=== PATIENT | male | born 1945 | race Caucasian/White ===

== ENCOUNTER 2019-07-31 15:42 | Inpatient (IN) | payer MEDICARE, MEDICAID ==
[~2019-07-31] VITALS: Ht 185.4 cm; Wt 78.9 kg
[~2019-07-31 15:42] MED LIST: ALBU18HF2 IH; AMIT100T2 PO; DOCU-141 PO; GABA-534 PO; IPRA3AMP22 IH; IPRA4AER IH; LEVA15HF5 IH; NITR0.4T48 SL; TAMS0.4C34 PO
--- NOTE | 2019-07-31 15:42 | NUR ---
Patient is AOx4, cooperative@this time, respiration:easy. Patient prefers to keep his inhalers near him.
[2019-07-31 16:05] LABS: BASOPHILS # (AUTO) 0.1 K/uL (0.0-8.0); BASOPHILS % (AUTO) 0.7 % (0.0-2.0); EOSINOPHILS % (AUTO) 0.2 % (0.0-7.0); HEMATOCRIT 44.1 % (36.7-47.1); HEMOGLOBIN 14.3 g/dL (12.5-16.3); LYMPHOCYTES # (AUTO) 1.3 K/uL (20.0-40.0); MEAN CORPUSCULAR HEMOGLOBIN 31.3 uug (23.8-33.4); MEAN CORPUSCULAR HGB CONC 33 g/dL (32.5-36.3); MEAN CORPUSCULAR VOLUME 96.2 fL (73.0-96.2); MONOCYTES # (AUTO) 0.7 K/uL (2.0-10.0); MONOCYTES % (AUTO) 6.3 % (0.0-11.0); NEUTROPHILS # (AUTO) 8.8 K/uL (1.8-8.9); NEUTROPHILS % (AUTO) 80.8 % (38.5-71.5); PLATELET COUNT (AUTO) 210 K/uL (152-348); RED BLOOD CELL COUNT(AUTO) 4.58 MIL/uL (4.06-5.63); WHITE BLOOD COUNT (AUTO) 10.9 K/uL (3.6-10.2)
[2019-07-31 16:13] LABS: CARBON DIOXIDE 30 mmol/L (21-32); CHLORIDE 102 mmol/L (98-107); CREATININE 1.2 mg/dL (0.6-1.3); GLUCOSE 85 mg/dL (74-106); POTASSIUM 4.7 mmol/L (3.5-5.1); UREA NITROGEN, BLOOD 13 mg/dL (7-18)
[2019-07-31] MEDS ORDERED: BISA10SU95 RC (16:14)
[2019-07-31] MEDS ORDERED: MORP20SO PO (16:14)
[2019-07-31] MEDS ORDERED: ACET650S13 RC (16:14)
[2019-07-31] MEDS ORDERED: DIPH50CA37 PO (16:14)
[2019-07-31] MEDS ORDERED: ATRO2DRO4 OP (16:14)
[2019-07-31] MEDS ORDERED: MAG30ORA PO (16:14)
[2019-07-31] MEDS ORDERED: QUET25TA PO (16:14)
[2019-07-31] MEDS ORDERED: LORA2ORA5 PO (16:14)
[2019-07-31] MEDS ORDERED: POTA-88 PO (16:14)
[2019-07-31] MEDS ORDERED: ALBU2.5V38 IH (16:14)
[2019-07-31] MEDS ORDERED: TRAM50TA2 PO (16:14)
[2019-07-31] MEDS ORDERED: TIOT4MIS3 IH (16:14)
[2019-07-31] MEDS ORDERED: AMIT75TA2 PO (16:14)
[2019-07-31] MEDS ORDERED: ONDA4TAB11 PO (16:14)
[2019-07-31 16:19] LABS: ACETAMINOPHEN < 2.0 ug/mL (10-30); ALANINE AMINOTRANSFERASE 31 U/L (16-63); ALKALINE PHOSPHATASE 98 U/L (50-136); ASPARTATE AMINOTRANSFERASE 47 U/L (15-37); BILIRUBIN,DIRECT 0.2 mg/dL (0.0-0.2); BILIRUBIN,TOTAL 0.7 mg/dL (0.2-1.0); TOTAL PROTEIN, SERUM 7.9 g/dL (6.4-8.2)
--- NOTE | 2019-07-31 16:35 | NUR ---
Patient is medically cleared by Dr Degroot for mental health admission, still for urine specimen, endorsed to MHU nurse Yohan accordingly.
[2019-07-31 16:36] LABS: ETHANOL < 3 MG/DL (0-0)
[2019-07-31] MEDS ORDERED: BLOOD SUGAR DIAGNOSTIC 1 EACH STRIP VI ONE (17:15)
[2019-07-31] MEDS ORDERED: TEMAZEPAM 7.5 MG CAPSULE PO PRN (17:15)
[2019-07-31] MEDS ORDERED: MAG HYDROX/AL HYDROX/SIMETH 30 ML LIQUID UDC PO PRN (17:15)
[2019-07-31 17:50] VITALS: BP 138/88
--- NOTE | 2019-07-31 18:25 | NUR ---
Admitted patient from ER with 5150 for DTO due to pt was screaming and threatening to kill everyone form halfway .during interview Patient is A/Ox2, loud and angry affect, overly disruptive by shouting and screaming to staff, demanding to have his medications by his bed side,believes that the police are lying about him.refused to sign any paper work. noted patient had skin tear on his left FA, and abrasion on his left knee,picture taken and treatment done.
[2019-07-31] MEDS ORDERED: ONDANSETRON ODT 4 MG TAB.RAPDIS SL PRN (19:30)
[2019-07-31] MEDS: ALBUTEROL SULFATE 2.5 MG/3 ML NEBU IH SCH (19:30)
[2019-07-31 20:00] VITALS: BP 106/63
[2019-07-31] MEDS: ACETAMINOPHEN 325 MG TABLET PO PRN (21:12)
[2019-07-31] MEDS: TEMAZEPAM 15 MG CAPSULE PO PRN (21:12)
[2019-08-01] MEDS: ALBUTEROL SULFATE 2.5 MG/3 ML NEBU IH SCH ×3 (00:34→19:05)
--- NOTE | 2019-08-01 00:34 | NUR ---
RT: PT refuse tx. pt does not want to be waken for tx. nurse aware
--- NOTE | 2019-08-01 06:28 | NUR ---
Patient slept a total of 8.45 hours. Attended all needs. Ensured safety and comfort. Aerosol inhaler offered as needed for shortness of breath. No other untoward events noted. Will endorse accordingly.
[2019-08-01 07:45] VITALS: BP 146/79
[2019-08-01] MEDS: DOCUSATE SODIUM 100 MG CAPSULE PO SCH ×2 (08:03→17:34)
[2019-08-01] MEDS: diphenhydrAMINE 50 MG CAPSULE PO SCH (08:09)
--- NOTE | 2019-08-01 10:04 | NUR ---
Social Work Note/Family Contact: workers compensation consultant contacted patients shayy De La Torre, ([phone]) and left a voicemail to discuss patients treatment plan and discharge plan.
--- NOTE | 2019-08-01 10:06 | NUR ---
Social Work Note/Facility Contact: nozzle worker contacted patients facility where he resided at [facility] [place] at [id number] [place] [id number]; ([phone]). Patient contacted the admin coordinator Harpreet, ([phone]) and expressed that patient is not welcomed back.
[2019-08-01 10:28] LABS: BILIRUBIN,TOTAL 0.8 mg/dL (0.2-1.0); POTASSIUM 3.9 mmol/L (3.5-5.1); TOTAL PROTEIN, SERUM 7.5 g/dL (6.4-8.2)
--- NOTE | 2019-08-01 10:55 | NUR ---
Social Work Note/Initial Discharge Plan: Patient currently resides at [address] [place] [id number]; ([phone]). Per patient, he does not want to go back. THOMAS will work with the pt and the MD regarding appropriate discharge planning. SW will form a safe and proper discharge.
--- NOTE | 2019-08-01 11:05 | NUR ---
Social Work Note/Facility Contact: Camille admin coordinator from [facility], ([phone]) stated that she will facility patients discharge when patient is ready to a [facility] as patient has been in there facility before.
--- NOTE | 2019-08-01 12:46 | NUR ---
WOUND CARE CONSULT: PT PRESENTS WITH LEFT KNEE ABRASION AND LEFT ARM SKIN TEAR, PRESENT ON ADMISSION. RECOMMENDATIONS MADE FOR WOUND CARE. DISCUSSED WITH NURSING STAFF. WILL SEE PRN. PT IS AMBULATORY AND CONTINENT. Addendum: 08/01/19 at 1247 by ROVERTO COKER RN Amended: Links added.
[2019-08-01] MEDS: GABAPENTIN 100 MG CAPSULE PO SCH ×2 (12:50→17:34)
[2019-08-01] MEDS: ACETAMINOPHEN 325 MG TABLET PO PRN (14:03)
--- NOTE | 2019-08-01 15:45 | NUR ---
received MRSA positive result from LAB, made aware ,placed pt on contact isolation .
[2019-08-01 16:00] VITALS: BP 106/65
--- NOTE | 2019-08-01 16:17 | NUR ---
Paving And Surfacing Labourer Note/Family Contact: antichecking iron worker contacted patients ex- Allie, ([phone]) and left a voicemail in regards to patients treatment plan and discharge.
[2019-08-01] MEDS: SERTRALINE HCL 50 MG TABLET PO SCH (17:34)
[2019-08-01] MEDS: MUPIROCIN 2% OINT 22 GM TUBE NS SCH (20:34)
[2019-08-01 20:57] VITALS: BP 111/64
[2019-08-01] MEDS: TRAMADOL HCL 50 MG TABLET PO PRN (21:04)
[2019-08-01] MEDS: TEMAZEPAM 15 MG CAPSULE PO PRN (21:31)
[2019-08-02] MEDS: ALBUTEROL SULFATE 2.5 MG/3 ML NEBU IH SCH ×4 (00:52→19:15)
[2019-08-02 07:30] VITALS: BP 112/74
--- NOTE | 2019-08-02 07:30 | NUR ---
Patient calm and comfortable with no signs of distress; patient will continue be monitored through out shift.
[2019-08-02] MEDS: MUPIROCIN 2% OINT 22 GM TUBE NS SCH ×2 (08:37→20:19)
[2019-08-02] MEDS: DOCUSATE SODIUM 100 MG CAPSULE PO SCH ×2 (08:37→17:04)
[2019-08-02] MEDS: diphenhydrAMINE 50 MG CAPSULE PO SCH (08:38)
[2019-08-02] MEDS: GABAPENTIN 100 MG CAPSULE PO SCH ×3 (08:38→17:04)
[2019-08-02] MEDS: TRAMADOL HCL 50 MG TABLET PO PRN ×2 (10:15→21:40)
[2019-08-02] MEDS: CLONAZEPAM 0.5 MG TABLET PO PRN (11:17)
[2019-08-02 16:00] VITALS: BP 106/55
[2019-08-02] MEDS: SERTRALINE HCL 50 MG TABLET PO SCH (17:04)
--- NOTE | 2019-08-02 18:18 | NUR ---
Patient calm and comfortable through out most of shift; patient medication compliant; patient expressing pain on big right toe; image taken of toe; x-ray taken of right foot with an impression of no acute fracture or dislocation or plain imaging evidence of osteomyelitis along with mild right haux deformity. Patient used prn inhaler through shift on as a needed basis.Patient with stable vital signs; Report given to oncoming nurse.
[2019-08-02] MEDS: TEMAZEPAM 15 MG CAPSULE PO PRN (20:18)
[2019-08-02] MEDS: ACETAMINOPHEN 325 MG TABLET PO PRN (20:19)
[2019-08-02 21:03] VITALS: BP 108/71
--- NOTE | 2019-08-02 22:00 | NUR ---
Lt forearm dressing is soiled, patient reports pain and burning sensation at the skin tear site. Dressing was changed per WC recommendations. Moderate erythema and swelling around the skin tear, sanguineous discharge. Right hallux is also reddened and painful. Will endorse to the day shift for new/change in Tx per hospitalist orders.
[2019-08-03] MEDS: ALBUTEROL SULFATE 2.5 MG/3 ML NEBU IH SCH ×5 (00:47→20:26)
[2019-08-03 07:30] VITALS: BP 93/51
[2019-08-03] MEDS: GABAPENTIN 100 MG CAPSULE PO SCH ×3 (08:31→18:00)
[2019-08-03] MEDS: DOCUSATE SODIUM 100 MG CAPSULE PO SCH ×2 (08:31→18:00)
[2019-08-03] MEDS: diphenhydrAMINE 50 MG CAPSULE PO SCH (08:31)
[2019-08-03] MEDS: MUPIROCIN 2% OINT 22 GM TUBE NS SCH ×2 (08:32→20:10)
[2019-08-03 16:45] VITALS: BP 105/56
[2019-08-03] MEDS: SERTRALINE HCL 50 MG TABLET PO SCH (18:00)
[2019-08-03 20:19] VITALS: BP 125/71
[2019-08-03] MEDS: TRAMADOL HCL 50 MG TABLET PO PRN (20:21)
[2019-08-03] MEDS: TEMAZEPAM 15 MG CAPSULE PO PRN (21:05)
[2019-08-03] MEDS: CLONAZEPAM 0.5 MG TABLET PO PRN (22:52)
[2019-08-03] MEDS: ACETAMINOPHEN 325 MG TABLET PO PRN (22:53)
[2019-08-04] MEDS: ALBUTEROL SULFATE 2.5 MG/3 ML NEBU IH SCH ×5 (01:30→20:30)
--- NOTE | 2019-08-04 06:14 | NUR ---
Patient slept 5 hrs and 30 mins.
[2019-08-04 07:15] LABS: *BILIRUBIN,URIN NEGATIVE (NEGATIVE); *BLOOD, URINE NEGATIVE (NEGATIVE); *CLARITY,URINE CLEAR (CLEAR); *COLOR,URINE YELLOW (YELLOW); *KETONES,URINE NEGATIVE (NEGATIVE); *UROBILINOGEN,URINE 0.2 E.U./dl (NORMAL); LEUKOCYTE ESTERASE ,URINE NEGATIVE (NEGATIVE); NITRITE, URINE NEGATIVE (NEGATIVE); UGLUCOSE NEGATIVE (NEGATIVE)
[2019-08-04 07:58] LABS: EOSINOPHILS # (AUTO) 0.2 K/uL (0.0-0.7); EOSINOPHILS % (AUTO) 4.4 % (0.0-7.0); HEMATOCRIT 40.2 % (36.7-47.1); LYMPHOCYTES # (AUTO) 1.5 K/uL (20.0-40.0); LYMPHOCYTES % (AUTO) 31.8 % (20.5-51.5); MEAN CORPUSCULAR HEMOGLOBIN 30.4 uug (23.8-33.4); MEAN CORPUSCULAR HGB CONC 32 g/dL (32.5-36.3); MEAN CORPUSCULAR VOLUME 93.7 fL (73.0-96.2); MONOCYTES # (AUTO) 0.5 K/uL (2.0-10.0); MONOCYTES % (AUTO) 10.9 % (0.0-11.0); NEUTROPHILS # (AUTO) 2.5 K/uL (1.8-8.9); NEUTROPHILS % (AUTO) 51.9 % (38.5-71.5); PLATELET COUNT (AUTO) 141 K/uL (152-348); RED BLOOD CELL COUNT(AUTO) 4.29 MIL/uL (4.06-5.63); WHITE BLOOD COUNT (AUTO) 4.8 K/uL (3.6-10.2)
[2019-08-04 08:13] LABS: CARBON DIOXIDE 34 mmol/L (21-32); CHLORIDE 103 mmol/L (98-107); CREATININE 0.7 mg/dL (0.6-1.3); GLUCOSE 94 mg/dL (74-106); MAGNESIUM 2.2 mg/dL (1.8-2.4); PHOSPHOROUS 4.1 mg/dL (2.5-4.9); POTASSIUM 4.2 mmol/L (3.5-5.1); UREA NITROGEN, BLOOD 14 mg/dL (7-18)
[2019-08-04] MEDS: GABAPENTIN 100 MG CAPSULE PO SCH ×3 (08:54→16:21)
[2019-08-04] MEDS: MUPIROCIN 2% OINT 22 GM TUBE NS SCH ×2 (08:54→20:25)
[2019-08-04] MEDS: DOCUSATE SODIUM 100 MG CAPSULE PO SCH ×2 (08:54→16:21)
[2019-08-04] MEDS: VITAMINS A AND D OINT TP SCH (08:54)
[2019-08-04] MEDS: diphenhydrAMINE 50 MG CAPSULE PO SCH (08:55)
[2019-08-04] MEDS: MAGNESIUM HYDROXIDE 30 ML LIQUID UDC PO PRN ×2 (09:12→18:15)
[2019-08-04] MEDS: TRAMADOL HCL 50 MG TABLET PO PRN (12:19)
[2019-08-04 14:42] VITALS: BP 120/73
--- NOTE | 2019-08-04 15:41 | NUR ---
GPS : received patient AOx3, calm and cooperative patient compliant with medication, patient visited by his Ex- patient asked for his valuables and he signed for the repossession, patient gave his valuable including credit card and ID to his ex , will continue monitor
[2019-08-04] MEDS: SERTRALINE HCL 50 MG TABLET PO SCH (16:21)
[2019-08-04 16:32] VITALS: BP 99/64
--- NOTE | 2019-08-04 17:19 | NUR ---
PATIENT RECEIVED PRN MEDICATION FOR SOB, PATIENT IN NO DISTRESS, WOUND TREATMENT WAS DONE, SEEN BY THE VASCULAR SPECIALIST TODAY, WILL CONTINUE MONITOR
[2019-08-04] MEDS: CLONAZEPAM 0.5 MG TABLET PO PRN (18:15)
--- NOTE | 2019-08-04 18:23 | NUR ---
PATIENT WENT TO NURSING STATION, ASK FOR MILK OF MAGNESIA AND ASK FOR ANXIETY MEDICATION, PATIENT WENT TO HIS ROOM QUIETLY, MEDS GIVEN ORDERED WILL CONTINUE MONITOR
[2019-08-04] MEDS: TEMAZEPAM 15 MG CAPSULE PO PRN (21:18)
[2019-08-04] MEDS: ACETAMINOPHEN 325 MG TABLET PO PRN (21:25)
[2019-08-05] MEDS: ALBUTEROL SULFATE 2.5 MG/3 ML NEBU IH SCH ×4 (01:30→19:15)
[2019-08-05 08:28] VITALS: BP 115/58
[2019-08-05] MEDS: DOCUSATE SODIUM 100 MG CAPSULE PO SCH ×2 (08:29→16:44)
[2019-08-05] MEDS: GABAPENTIN 100 MG CAPSULE PO SCH ×3 (08:30→16:44)
[2019-08-05] MEDS: MUPIROCIN 2% OINT 22 GM TUBE NS SCH ×2 (08:47→20:39)
[2019-08-05] MEDS: diphenhydrAMINE 50 MG CAPSULE PO SCH (08:49)
[2019-08-05] MEDS: VITAMINS A AND D OINT TP SCH (08:50)
[2019-08-05 16:36] VITALS: BP 130/60
[2019-08-05] MEDS: SERTRALINE HCL 50 MG TABLET PO SCH (16:44)
--- NOTE | 2019-08-05 17:02 | NUR ---
PT NOTED TO HAVE APPARENTLY HIDDEN HIS BREAKFAST THIS MORNING BECAUSE HYDROMETEOROLOGICAL TECHNICIAN NOTICED PT WAS GIVING HIS BREAKFAST AT THIS TIME TO ANOTHER PT IN ANOTHER ROOM. REMINDED PT THAT HE HAS MRSA, AND HE CANNOT GIVE HIS FOOD TO OTHER PT'S DUE TO INFECTION CONTROL POLICY, WELL OTHER PT'S HAVE DIFFERENTIATING DIETS. PT BECAME QUITE ANGRY, HOSTILE, AND DEFENSIVE. STATED "ISABEL DONE THAT BEFORE AND NOBODY SAID ANYTHING. NOW YOU'RE TREATING ME LIKE A DAMN JACKASS." WILL CONTINUE TO REMIND PT TO NOT GIVE HIS FOOD TO OTHER PTS.
[2019-08-05 20:00] VITALS: BP 107/69
[2019-08-05] MEDS: TRAMADOL HCL 50 MG TABLET PO PRN (20:51)
[2019-08-05] MEDS: ACETAMINOPHEN 325 MG TABLET PO PRN (21:11)
[2019-08-05] MEDS: TEMAZEPAM 15 MG CAPSULE PO PRN (21:38)
[2019-08-06] MEDS: ALBUTEROL SULFATE 2.5 MG/3 ML NEBU IH SCH ×4 (00:31→20:42)
[2019-08-06 08:07] VITALS: BP 134/74
[2019-08-06] MEDS: GABAPENTIN 100 MG CAPSULE PO SCH ×3 (08:41→16:01)
[2019-08-06] MEDS: DOCUSATE SODIUM 100 MG CAPSULE PO SCH ×2 (08:41→16:01)
[2019-08-06] MEDS: MUPIROCIN 2% OINT 22 GM TUBE NS SCH ×2 (08:41→20:41)
[2019-08-06] MEDS: VITAMINS A AND D OINT TP SCH (08:42)
[2019-08-06] MEDS: diphenhydrAMINE 50 MG CAPSULE PO SCH (08:43)
[2019-08-06] MEDS: NEOMY/BACITRAC/POLYMI OINT 28.35 GM TUBE TOP SCH (09:15)
--- NOTE | 2019-08-06 09:51 | NUR ---
Social Work Note/Discharge Plan Update: Camille admin coordinator from [facility], ([phone]) stated that she will accept patient upon discharge. lime kiln worker helper faxed patients clinicals ([phone]).
--- NOTE | 2019-08-06 09:58 | NUR ---
Social Work Note/Family Contact: civil service worker contacted patients daughter Britt, ([phone]) and left a voicemail. civil service worker also contacted patients ex- Allie, ([phone]) and left a voicemail to call back. civil service worker will follow-up.
[2019-08-06] MEDS: TRAMADOL HCL 50 MG TABLET PO PRN (12:50)
--- NOTE | 2019-08-06 13:20 | NUR ---
Social Work Note/Family Contact: motion picture set worker spoke to patients daughter Britt, ([phone]) and expressed patients treatment and discharge plan. Patients daughter expressed that her mother who is patients ex- Allie, ([phone]) is involved in his care because she lives in [place].
--- NOTE | 2019-08-06 13:53 | NUR ---
WOUND CARE FOLLOW UP: PT SEEN ON REQUEST OF NURSING STAFF FOR LEFT ARM WOUND. NO ODOR NOTED BUT SLIGHT INCREASE IN DRAINAGE. LEFT KNEE WOUND NEARLY HEALED. CONCUR WITH CURRENT TREATMENT PLAN. WILL SEE PRN. PT IS AMBULATORY AND CONTINENT. Addendum: 08/06/19 at 1400 by ROVERTO COKER RN Amended: Links added.
[2019-08-06] MEDS: SERTRALINE HCL 50 MG TABLET PO SCH (16:01)
[2019-08-06 16:32] VITALS: BP 103/57
--- NOTE | 2019-08-06 17:13 | NUR ---
GPS: PATIENT AOX3, CALM AND COOPERATIVE, COMPLIANT WITH MEDICATION, ON CONTACT ISOLATION FOR MRSA OF THE NARES , PATIENT COMPLIANT WITH THE ISOLATION, WOUND CARE WAS DONE, WILL CONTINUE MONITOR PATIENT
[2019-08-06] MEDS: MAGNESIUM HYDROXIDE 30 ML LIQUID UDC PO PRN (18:07)
[2019-08-06 20:00] VITALS: BP 125/65
[2019-08-06] MEDS: TEMAZEPAM 15 MG CAPSULE PO PRN (21:34)
[2019-08-06] MEDS: ACETAMINOPHEN 325 MG TABLET PO PRN (21:34)
[2019-08-07] MEDS: ALBUTEROL SULFATE 2.5 MG/3 ML NEBU IH SCH ×5 (01:30→20:50)
--- NOTE | 2019-08-07 06:54 | NUR ---
Patient first observed awake watching television in the dining room with labile mood. Observed at nursing station several times through shift claiming he had shortness of breath, saturation recorded at 95%. Patient compliant with HS medication. Nebulizer treatment administered as ordered by respiratory therapist times two at patients requests. Prn for insomnia administered as ordered with effective outcome, no distress noted a total of five hours and fifteen minutes. Continue to monitor for safety.
[2019-08-07 07:30] VITALS: BP 107/68
--- NOTE | 2019-08-07 07:56 | NUR ---
GPS: RECEIVED PATIENT ASLEEP ON BED, SPOKE WITH DR. MOSS WITH ORDER FOR DISCONTINUE OF ISOLATION , ORDERS MADE AND CARRIED OUT
[2019-08-07] MEDS: GABAPENTIN 100 MG CAPSULE PO SCH ×3 (08:14→16:06)
[2019-08-07] MEDS: DOCUSATE SODIUM 100 MG CAPSULE PO SCH ×2 (08:14→16:06)
[2019-08-07] MEDS: NEOMY/BACITRAC/POLYMI OINT 28.35 GM TUBE TOP SCH (08:15)
[2019-08-07] MEDS: VITAMINS A AND D OINT TP SCH (08:15)
[2019-08-07] MEDS: diphenhydrAMINE 50 MG CAPSULE PO SCH (08:15)
--- NOTE | 2019-08-07 11:21 | NUR ---
Social Work Note/Family Contact: call worker contacted patients daughter Britt, ([phone]) and shared that patient will be discharged tomorrow to [facility].
[2019-08-07] MEDS: TRAMADOL HCL 50 MG TABLET PO PRN (13:43)
[2019-08-07 15:09] VITALS: BP 105/63
[2019-08-07] MEDS: SERTRALINE HCL 50 MG TABLET PO SCH (16:06)
--- NOTE | 2019-08-07 17:56 | NUR ---
patient remain calm and cooperative, denies SI and HI at this time
[2019-08-07 19:54] VITALS: BP 116/71
[2019-08-07] MEDS: TEMAZEPAM 15 MG CAPSULE PO PRN (20:58)
[2019-08-07] MEDS: MAGNESIUM HYDROXIDE 30 ML LIQUID UDC PO PRN (20:58)
[2019-08-07] MEDS: ACETAMINOPHEN 325 MG TABLET PO PRN (21:08)
--- NOTE | 2019-08-07 21:50 | NUR ---
Patient visible on unit, alert, oriented, poor disheveled appearance. Requested a prn for insomnia administered as ordered, prn for constipation administered as ordered. Follow up with effectiveness. Otherwise patient continues to display demanding behavior, requiring redirection from nursing staff. Easily irritable when demands are not met in a timely manner according to his standards for example a display of anger towards a neb tx that arrived 20 after he requested it. Will continue to monitor for safety.
[2019-08-08] MEDS: ALBUTEROL SULFATE 2.5 MG/3 ML NEBU IH SCH ×2 (01:30→08:41)
--- NOTE | 2019-08-08 06:49 | NUR ---
Prn for insomnia effective, patient slept a total of six hours with no distress noted. Will continue to monitor for safety.
[2019-08-08 07:30] VITALS: BP 123/75
--- NOTE | 2019-08-08 08:10 | NUR ---
FIREARMS REPORT: Training And Development Specialist completed and submitted a [employer] firearms report for 5250 grave disability certification. A copy of report has been placed in patient chart.
--- NOTE | 2019-08-08 08:11 | NUR ---
Social Work Note/DISCHARGE: Patient will be discharged to [facility] facility [facility] [address] [facility]; ) via Ambulance transportation. Please arrange Ambulance transportation for patient to be picked up at 12:00pm. Patient Placement Coordinator spoke with Camille Manager Clinical Pharmacy at [facility]; ([phone]), who stated patient will be accepted back at facility today. Per patients daughter Britt, ([phone]) has been made aware and agreeable with discharge plans. Patient is alert and oriented x3-4 and is unable to plan for self-care. Patient denies any suicidal or homicidal ideations. Patient is aware and agreeable with discharge plans. Patient will continue to follow-up with Psychiatrist Dr. Reich and Heating Worker Dr. Juarez from [facility] [address] [facility]; ). Patient will follow-up at the facility with Dr. Reich (Heating Worker) and Dr. Juarez (Psychiatrist) to discuss smoking cessation and address substance abuse dependency. Patient was provided with mental health referrals to [facility] Line and the National Suicide Prevention Lifeline . Patient was provided with a brief substance abuse intervention and referred to [facility] , [facility] , and [facility] . Patient presents with euthymic and congruent mood.
[2019-08-08] MEDS: diphenhydrAMINE 50 MG CAPSULE PO SCH (08:21)
[2019-08-08] MEDS: GABAPENTIN 100 MG CAPSULE PO SCH (08:21)
[2019-08-08] MEDS: DOCUSATE SODIUM 100 MG CAPSULE PO SCH (08:21)
[2019-08-08] MEDS: NEOMY/BACITRAC/POLYMI OINT 28.35 GM TUBE TOP SCH (08:22)
[2019-08-08] MEDS: VITAMINS A AND D OINT TP SCH (08:22)
[2019-08-08] MEDS: TRAMADOL HCL 50 MG TABLET PO PRN (12:01)
--- NOTE | 2019-08-08 12:21 | NUR ---
GPS: patient AOx4, compliant with medication , in good spirit, patient denies SI and Hi, with DC order going to [facility], gave discharge instruction, gave report with snf , spoke with karina, , transportation arrange, made aware of the discharge, will continue monitor
--- NOTE | 2019-08-08 13:14 | NUR ---
transfered to [facility], patient in good spirit,
--- NOTE | 2019-08-28 10:23 | NUR ---
Social Work Note/Substance Abuse Follow up: street worker conducted a follow up substance abuse intervention.
== END 2019-08-08 13:16 | DRG 885 ==
LOC: ER 15:44 → GPS 16:39
PROVIDERS: ADMIT Psychiatry & Neurology Psychosomatic Medicine; ATTEND Registered Nurse
DX: F31.9 Bipolar disorder, unspecified (principal); G62.9 Polyneuropathy, unspecified; J44.9 Chronic obstructive pulmonary disease, unspecified; I73.9 Peripheral vascular disease, unspecified; G89.4 Chronic pain syndrome; M20.42 Other hammer toe(s) (acquired), left foot; M20.41 Other hammer toe(s) (acquired), right foot; L85.3 Xerosis cutis; Z85.828 Personal history of other malignant neoplasm of skin; Z89.412 Acquired absence of left great toe; Z85.46 Personal history of malignant neoplasm of prostate; Z85.038 Personal history of other malignant neoplasm of large intestine; Z22.322 Carrier or suspected carrier of Methicillin resistant Staphylococcus aureus; D72.829 Elevated white blood cell count, unspecified; B35.3 Tinea pedis; F10.10 Alcohol abuse, uncomplicated; Y90.0 Blood alcohol level of less than 20 mg/100 ml; I10 Essential (primary) hypertension
CPT/HCPCS: 36415; 71045; 73630; 83735; 84100; 85025; 87086; 93005; 94640; A4663; G0480; G0480-TC; J3535; Q0163